=== PATIENT | female | born 1935 | race Caucasian/White ===

== ENCOUNTER 2017-01-21 08:57 | Day surgery (SDC) | payer MEDICARE, OTHER ==
[~2017-01-21 08:57] MED LIST: KETOROLAC TROMETHAMINE 0.45% 4 DROP/0.4 ML DROPERETTE OD PRN
[2017-01-21] MEDS: CYCLOPENTOLATE 0.2%/PHENYLEPHRINE 1% OPH SOLN 2 ML OD PRN ×3 (09:44→10:02)
[2017-01-21] MEDS: TROPICAMIDE 1% OPH SOLN 3 ML OD PRN ×3 (09:44→10:02)
[2017-01-21] MEDS: BESIFLOXACIN HCL 0.6% OPH SUSP 5 ML BOTTLE OD PRN ×4 (09:45→10:34)
[2017-01-21] MEDS: TETRACAINE HCL 0.5% OPH SOLN 0.6 ML DROPERETTE OD PRN ×3 (09:46→10:14)
[2017-01-21] MEDS ORDERED: CHONDR SU A NA/HYALUR INTRAOC KIT (SURGICARE) ONE (10:00)
[2017-01-21] MEDS ORDERED: EPINEPHRINE INJ/PF 1 MG/1 ML AMPULE ONE (10:00)
[2017-01-21] MEDS ORDERED: LIDOCAINE 1% INJ-PF (10 MG/ML) 30 ML SDV ONE (10:00)
[2017-01-21] MEDS ORDERED: FENTANYL CITRATE INJ/PF 100 MCG/2 ML AMPUL ONE (10:09)
[2017-01-21] MEDS ORDERED: ONDANSETRON HCL INJ/PF 4 MG/2 ML SDV ONE (10:09)
[2017-01-21] MEDS ORDERED: MIDAZOLAM 2 MG/2 ML INJ ONE (10:09)
[2017-01-21] MEDS: TOBRAMYCIN SULFATE/DEXAMETH OPH OINTMENT 3.5 GM ONE ×2 (10:34)
== END 2017-01-21 11:51 | disposition home or self-care (01) ==
LOC: SC 08:57
PROVIDERS: ATTEND Ophthalmology
PROC: 08RJ3JZ Replacement of Right Lens with Synthetic Substitute, Percutaneous Approach (ICD-10-PCS; principal; 2017-01-21 10:00)
DX: H25.11 Age-related nuclear cataract, right eye (principal); I10 Essential (primary) hypertension; N32.81 Overactive bladder; Z79.899 Other long term (current) drug therapy; Z88.1 Allergy status to other antibiotic agents
CPT/HCPCS: 66984; V2630; J2250; J3490 ×3; A9270; J0171; J3010; J2405; 142

== ENCOUNTER 2017-02-11 07:55 | Day surgery (SDC) | payer MEDICARE, OTHER ==
[~2017-02-11 07:55] MED LIST changes: +CHONDR SU A NA/HYALUR INTRAOC KIT (SURGICARE) ONE; +EPINEPHRINE INJ/PF 1 MG/1 ML AMPULE ONE; -KETOROLAC TROMETHAMINE 0.45% 4 DROP/0.4 ML DROPERETTE OD PRN; +KETOROLAC TROMETHAMINE 0.45% 4 DROP/0.4 ML DROPERETTE OS PRN; +TOBRAMYCIN SULFATE/DEXAMETH OPH OINTMENT 3.5 GM ONE
[2017-02-11] MEDS: TETRACAINE HCL 0.5% OPH SOLN 0.6 ML DROPERETTE OS PRN ×3 (08:10→08:37)
[2017-02-11] MEDS: TROPICAMIDE 1% OPH SOLN 3 ML OS PRN ×3 (08:11→08:30)
[2017-02-11] MEDS: CYCLOPENTOLATE 0.2%/PHENYLEPHRINE 1% OPH SOLN 2 ML OS PRN ×3 (08:11→08:30)
[2017-02-11] MEDS: BESIFLOXACIN HCL 0.6% OPH SUSP 5 ML BOTTLE OS PRN ×3 (08:12→09:01)
[2017-02-11] MEDS ORDERED: MIDAZOLAM 2 MG/2 ML INJ ONE ×2 (08:24→08:29)
[2017-02-11] MEDS: LIDOCAINE 1% INJ-PF (10 MG/ML) 30 ML SDV ONE ×2 (08:49→09:01)
== END 2017-02-11 09:47 | disposition home or self-care (01) ==
LOC: SC 07:55
PROVIDERS: ATTEND Ophthalmology
PROC: 08RK3JZ Replacement of Left Lens with Synthetic Substitute, Percutaneous Approach (ICD-10-PCS; principal; 2017-02-11 09:00)
DX: H25.12 Age-related nuclear cataract, left eye (principal); I10 Essential (primary) hypertension; N32.81 Overactive bladder; Z79.899 Other long term (current) drug therapy; Z87.891 Personal history of nicotine dependence; Z88.1 Allergy status to other antibiotic agents; Z98.41 Cataract extraction status, right eye; Z85.820 Personal history of malignant melanoma of skin
CPT/HCPCS: 66984; V2630; J2250; J3490 ×3; A9270; J0171; 142